=== PATIENT | female | born 1950 | race Caucasian/White ===

== ENCOUNTER 2017-05-19 16:23 | Observation (INO) ==
[2017-05-19 17:40] LABS: Bilirubin,Urine Negative (Negative); Blood,Urine Negative (Negative); Clarity,Urine Clear (Clear); Color,Urine Yellow (Yellow); Glucose,Urine (UA) Normal (Normal); Ketones,Urine Negative (Negative); Leukocyte Esterase,Urine Negative (Negative); Nitrite,Urine Negative (Negative); PH,Urine 6.5 pH Units (5.0-8.0); Protein,Urine Negative (Neg-Trace); Specific Gravity,Urine 1.009 (1.010-1.025); Urobilinogen,Urine Normal (Normal)
[2017-05-19 18:06] LABS: Basophils % 0.7 %; Eosinophils % 0.2 %; Hematocrit 39.8 % (35.3-44.9); Hemoglobin 13.5 g/dL (11.5-15.4); Lymphocytes # 1.2 K/mcL (0.6-4.6); Lymphocytes % 28.5 %; Mean Corpuscular HGB Conc 33.9 g/dL (31.6-35.5); Mean Corpuscular Hemoglobin 30.4 pg (28.0-33.3); Mean Corpuscular Volume 89.6 fL (83.0-100.0); Mean Platelet Volume 9.5 fL (9.4-12.4); Monocytes # 0.3 K/mcL (0.0-1.3); Monocytes % 6.8 %; Neutrophils # 2.6 K/mcL (1.6-8.9); Platelet Count 208 K/mcL (140-400); Red Blood Count 4.44 M/mcL (3.82-4.97); Segmented Neutrophils % 63.8 %
[2017-05-19 18:21] LABS: Alanine Aminotransferase 22 Units/L (0-55); Albumin 4.2 g/dL (3.5-5.0); Albumin/Globulin Ratio 1.2 (1.1-2.2); Alkaline Phosphatase 132 Units/L (38-126); Amylase 74 Units/L (25-125); Aspartate Amino Transferase 24 Units/L (5-34); BUN/Creatinine Ratio 11 (6-26); Bilirubin,Direct 0.1 mg/dL (0.0-0.5); Bilirubin,Indirect 0.1 mg/dL (0.0-1.2); Bilirubin,Total 0.2 mg/dL (0.2-1.2); Blood Urea Nitrogen 8 mg/dL (7-20); Calcium 9.8 mg/dL (8.6-10.8); Carbon Dioxide 26 mEq/L (19-29); Chloride 97 mEq/L (98-109); Globulin 3.4 g/dL (2.4-3.5); Glucose 96 mg/dL (70-99); Lipase 41 Units/L (8-78); Osmolality,Calculated 270 (280-300); Potassium 3.7 mEq/L (3.5-4.5); Sodium 131 mEq/L (136-145); Total Protein 7.6 g/dL (6.0-8.3); eGFR For African Americans > 60 (> 60); eGFR For Non-African Americans > 60 (> 60)
--- NOTE | 2017-05-19 19:05 | Emergency Department Note ---
Disposition Clinical Impression: UTI (urinary tract infection) Qualifiers: Urinary tract infection type: acute cystitis Hematuria presence: without hematuria Qualified Code(s): N30.00 - Acute cystitis without hematuria Abdominal pain Qualifiers: Abdominal location: unspecified location Qualified Code(s): R10.9 - Unspecified abdominal pain Disposition: Admitted As Inpatient Condition: Good Referrals: Josias Guidry Jr, MD [Primary Care Provider] - Forms: ED Satisfaction Letter, Work/School Release Time of Disposition: 19:29 General Adult HPI - General Chief complaint: ED Abdominal Pain Stated complaint: ABD PAIN Time Seen by Provider: 05/19/17 18:51 Source: patient Limitations: no limitations Nursing Notes Reviewed: Yes Vital Signs Reviewed: Yes - History of Present Illness HPI Narrative: 67-year-old who was diagnosed with UTI 2 days ago placed on Cipro. Patient's not able to take the medication she is vomiting it up. She spoke to her labor mediator who told her to come in and be admitted for IV antibiotics. I did review the cultures grew out Morganella Leno greater than 100,000 colony- forming units. It is sensitive to ceftriaxone which we will start. Pt Subjective Complaint: Nausea vomiting UTI Onset (ago): day(s) Location: abdomen Radiation: non-radiation Pain Scale: 5 Quality: burning, aching Consistency: constant Improves with: nothing Worsens with: nothing Associated symptoms: Reports: denies other symptoms Treatments Prior to Arrival: none - Related Data Home Medications Medication Instructions Recorded Confirmed Avapro 08/03/16 CloNIDine 08/03/16 Lipitor 08/03/16 Lyrica 08/03/16 Previous Rx's Medication Instructions Recorded Lidocaine Viscous Oral Soln 15 ml PO Q3H PRN #200 ml 08/03/16 Moxifloxacin HCl [Avelox] 400 mg PO DAILY #7 tablet 08/03/16 Promethazine/Dextromethorphan 5 ml PO Q4H PRN #120 ml 08/03/16 [Promethazine-Dm Syrup] Fluconazole [Diflucan] 150 mg PO Q72H #2 tablet 08/10/16 Humidifier [Cool Mist Humidifier] 1 each MC DAILY #1 each 08/10/16 Moxifloxacin HCl [Avelox] 400 mg PO DAILY #7 tablet 08/10/16 Ondansetron [Zofran ODT] 8 mg SL TID PRN #9 tab.rapdis 08/10/16 Promethazine/Codeine 5 ml PO Q4HR PRN #120 ml 08/10/16 [Phenergan/Codeine] predniSONE [Prednisone] 40 mg PO DAILY #10 tablet 08/10/16 DiphenhydraMINE [Benadryl] 25 mg PO Q6HR #30 capsule 02/16/17 HYDROcodone/Acet 5/325 mg [[place] 1 tab PO Q6H PRN #6 tab 02/16/17 5-325 mg] predniSONE [PredniSONE] 60 mg PO DAILY #15 tablet 02/16/17 Allergies Allergy/AdvReac Type Severity Reaction Status Date / Time Penicillins Allergy Rash Verified 02/16/17 17:39 Sulfa (Sulfonamide Allergy Hives Verified 02/16/17 17:39 Antibiotics) All systems ED: reviewed and negative except as stated. Constitutional: Denies: fever, chills, weakness, weight change Eyes: Denies: eye pain, eye discharge, vision change ENT ED: Denies: ear pain, throat pain, dental pain, hearing loss, epistaxis, congestion, dysphagia Cardiovascular: Denies: chest pain, palpitations, dyspnea on exertion, edema, syncope Respiratory: Denies: cough, dyspnea, wheezes, hemoptysis, stridor Gastrointestinal: Reports: abdominal pain, nausea, vomiting. Denies: diarrhea, constipation, hematemesis, melena, hematochezia Genitourinary: Denies: dysuria, frequency, hematuria, discharge Musculoskeletal: Denies: back pain, neck pain, arthralgia, myalgia Integumentary: Denies: rash, abrasion, lesions Neurological: Denies: headache, weakness, numbness, paresthesias, confusion, abnormal gait, vertigo Psychiatric: Denies: anxiety, depression, suicidal thoughts, homicidal thoughts , auditory hallucinations, visual hallucinations Endocrine: Denies: fatigue Hematological/Lymphatic: Denies: easy bleeding, easy bruising Allergic/Immunologic: Denies: facial swelling, urticaria Past Medical History - Past Medical History Medical history: Reports: hyperlipidemia, hypertension, migraine, thyroid disease, other Surgical history: Reports: (x2) Psychiatric history: Reports: anxiety, depression - Social History Smoking Status: Never smoker Smokeless Tobacco Status: No Alcohol use: Reports: rarely Drug use: Reports: none Physical Exam - General Limitations: no limitations General appearance: alert - Head Head exam: atraumatic, normocephalic, normal inspection - Eye Eye exam: Present: normal appearance, PERRL, EOMI - ENT ENT exam: normal exam, normal oropharynx, mucous membranes moist - Neck Neck exam: Present: normal inspection, full ROM, trachea midline - Chest Chest inspection: Present: normal inspection, symmetric chest wall rise - Respiratory Respiratory exam: Present: normal lung sounds bilaterally - Cardiovascular Cardiovascular exam: Present: regular rate, normal rhythm, normal heart sounds - Abdominal Exam Abdominal exam: Present: soft, tenderness. Absent: distention, guarding, rebound, rigidity Abdominal tenderness: Present: diffuse - Extremities Exam Extremities exam: Present: normal inspection, full ROM. Absent: tenderness, pedal edema - Expanded Lower Extremity Exam Neurovascular/Tendon exam: Absent: motor deficit, sensory deficit, tendon deficit Gait: observed and normal - Back Exam Back exam: Present: normal inspection, full ROM. Absent: tenderness - Neurological Exam Neurological exam: Present: alert, oriented X3 - Psychiatric Psychiatric exam: Present: normal affect, normal mood - Skin Skin exam: Present: warm, dry, intact, normal color Course - Reevaluation(s) Reevaluation #1: 67-year-old who comes in with a history of UTI diagnosed 2 days ago. It grew out Morganella Leno. It is sensitive to Cipro which she was on but she cannot tolerate been vomiting. She talked to her labor mediator who sent her in to be admitted for IV antibiotics. We'll give her Rocephin IV. Her urine today looks clear although 2 days ago the culture is positive for greater than 100,000 of Morganella Leno. Time: 19:27 Reevaluation #2: Patient refused abdominal CT. Time: 20:50 - Consultations Consultation #1: Discussed with Dr. Byrd nephrology, admit to hospitalist. Time: 19:09 Consultation #2: Discussed with , admit. Time: 19:26 Vital Signs Temperature 97.6 F 05/19/17 16:40 Pulse Rate 66 05/19/17 16:40 Respiratory Rate 22 05/19/17 16:40 Blood Pressure 131/85 05/19/17 16:40 O2 Sat by Pulse Oximetry 99 05/19/17 16:40 Temperature 97.6 F 05/19/17 16:40 Pulse Rate 66 05/19/17 16:40 Respiratory Rate 22 05/19/17 16:40 Blood Pressure 131/85 05/19/17 16:40 O2 Sat by Pulse Oximetry 99 05/19/17 16:40 Oxygen Delivery Oxygen Delivery Room Air Medical Decision Making - Lab Data Result diagrams: 05/19/17 17:55 05/19/17 17:55 Lab Results 05/19/17 05/19/17 05/19/17 Range/Units 17:28 17:55 17:55 WBC 4.1 L (4.3-11.1) K/mcL RBC 4.44 (3.82-4.97) M/mcL Hgb 13.5 (11.5-15.4) g/dL Hct 39.8 (35.3-44.9) % MCV 89.6 (83.0-100.0) fL MCH 30.4 (28.0-33.3) pg MCHC 33.9 (31.6-35.5) g/dL RDW 13.0 (11.5-14.5) % Plt Count 208 (140-400) K/mcL MPV 9.5 (9.4-12.4) fL Immature Gran % 0.0 (0-4) % Seg Neutrophils % 63.8 % Lymphocytes % 28.5 % Monocytes % 6.8 % Eosinophils % 0.2 % Basophils % 0.7 % Neutrophils # 2.6 (1.6-8.9) K/mcL Lymphocytes # 1.2 (0.6-4.6) K/mcL Monocytes # 0.3 (0.0-1.3) K/mcL Eosinophils # 0.0 (0.0-0.6) K/mcL Basophils # 0.0 (0.0-0.2) K/mcL Sodium 131 L (136-145) mEq/L Potassium 3.7 (3.5-4.5) mEq/L Chloride 97 L (98-109) mEq/L Carbon Dioxide 26 (19-29) mEq/L BUN 8 (7-20) mg/dL Creatinine 0.72 (0.57-1.11) mg/dL Est GFR ( Amer) > 60 (> 60) Est GFR (Non-Af Amer) > 60 (> 60) BUN/Creatinine Ratio 11 (6-26) Glucose 96 (70-99) mg/dL Calculated Osmolality 270 L (280-300) Calcium 9.8 (8.6-10.8) mg/dL Total Bilirubin 0.2 (0.2-1.2) mg/dL Direct Bilirubin 0.1 (0.0-0.5) mg/dL Indirect Bilirubin 0.1 (0.0-1.2) mg/dL AST 24 (5-34) Units/L ALT 22 (0-55) Units/L Alkaline Phosphatase 132 H (38-126) Units/L Serum Total Protein 7.6 (6.0-8.3) g/dL Albumin 4.2 (3.5-5.0) g/dL Globulin 3.4 (2.4-3.5) g/dL Albumin/Globulin Ratio 1.2 (1.1-2.2) Amylase 74 (25-125) Units/L Lipase 41 (8-78) Units/L Urine Color Yellow (Yellow) Urine Clarity Clear (Clear) Urine pH 6.5 (5.0-8.0) pH Units Ur Specific [place] 1.009 L (1.010-1.025) Urine Protein Negative (Neg-Trace) mg/dL Urine Glucose (UA) Normal (Normal) mg/dL Urine Ketones Negative (Negative) mg/dL Urine Blood Negative (Negative) Urine Nitrite Negative (Negative) Urine Bilirubin Negative (Negative) Urine Urobilinogen Normal (Normal) mg/dL Ur Leukocyte Esterase Negative (Negative) Ur Culture Indicated? NO (NO)
--- NOTE | 2017-05-19 19:44 | Internal Med History&Physical ---
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 Urine cultures grew out Morganella Leno greater than 100,000 colony-forming units with sensitivity to ceftriaxone. Patient reports not being able to keep the Cipro due to vomiting. Rocephin 1g IV daily Zofran/ Phenergan prn N/V Urinalysis negative in in ED Advance diet as tolerated (2) Constipation Current visit: Yes Status: Acute She also reports chronic constipation. Last BM 5 days ago. Senna Plus BID Continue to monitor Qualifiers: Constipation type: slow transit constipation Qualified Code(s): K59.01 - Slow transit constipation (3) HTN (hypertension) Current visit: Yes Status: Chronic Continue home meds Qualifiers: Hypertension type: essential hypertension Qualified Code(s): I10 - Essential (primary) hypertension (4) HLD (hyperlipidemia) Current visit: Yes Status: Chronic Continue home meds Qualifiers: Hyperlipidemia type: unspecified Qualified Code(s): E78.5 - Hyperlipidemia , unspecified (5) Peripheral neuropathy Current visit: Yes Status: Chronic BLE neuropathy Continue home meds Qualifiers: Peripheral neuropathy type: polyneuropathy, unspecified Qualified Code(s): G62.9 - Polyneuropathy, unspecified (6) Insomnia Current visit: Yes Status: Chronic Continue home meds Qualifiers: Insomnia type: unspecified Qualified Code(s): G47.00 - Insomnia, unspecified (7) DVT prophylaxis Current visit: Yes Status: Acute Heparin subq TID Internal Medicine - H&P: HPI Chief complaint: UTI Admitted From: Home Plans for Post Hospital Care: Home History of present illness: Ms. 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 Urine cultures grew out Morganella Leno greater than 100,000 colony-forming units with sensitivity to ceftriaxone. Patient reports not being able to keep the Cipro due to vomiting. She also reports associated urinary hesitancy, weakness, anorexia, insomnia, and chronic constipation. Last BM 5 days ago. Of note, patient reports chronic UTIs with an average of 4 episodes per year. Patient denies fever, chills, CP, SOB, diarrhea, dysuria, or leg edema. Past Med Surg Social Fam HX - Past Medical History Medical history: hyperlipidemia, hypertension, migraine, thyroid disease, other Psychiatric history: anxiety, depression - Past Surgical History Surgical History: (x2) - Social History Smoking Status: Never smoker Smokeless Tobacco Status: No Alcohol use: rarely Drug use: none Current living situation: Home, With Family - Family History Mother Hx Family Cardiac Disorders: Yes (CAD, CABG x4 vessel) Father Hx Family GI Disorders: Yes (UC) Internal Medicine - H&P: Meds Atorvastatin Calcium [Lipitor] 20 mg PO HS 08/03/16 [History] Irbesartan [Avapro] 150 mg PO BID 08/03/16 [History] Pregabalin [Lyrica] 75 mg PO TID 08/03/16 [History] cloNIDine HCl [Clonidine HCl] 0.2 mg PO QAM AND QHS 08/03/16 [History] Ondansetron [Zofran ODT] 8 mg SL TID PRN #9 tab.rapdis 08/10/16 [Rx] Acetaminophen w/Cod 300-30 mg [Tylenol w/Codeine #3] 1 each PO Q6H PRN 05/19/17 [History] Acetaminophen/Butalbital/Caffe [Fioricet] 1 each PO Q4-6H PRN 05/19/17 [History] Amlodipine Besylate 2.5 mg PO BID 05/19/17 [History] Aspirin 325 mg PO DAILY 05/19/17 [History] Atenolol [Tenormin] 50 mg PO DAILY 05/19/17 [History] Calcium Carbonate/Vitamin D3 [Calcium 600-Vit D3 200 Tablet] 1 each PO BID 05/19 [History] Glucosam Sul Na/[place]r [place] A Na [Glucosamine-Chondroitin Tablet] 1 each PO BID [History] Inulin [Fiber Gummies] 2 gm PO DAILY 05/19/17 [History] LORazepam [Ativan] 1 mg PO TID 05/19/17 [History] Lactulose 10 - 20 gm PO TID PRN 05/19/17 [History] Levothyroxine [Synthroid] 50 mcg PO 0630 05/19/17 [History] Lidocaine Patch [Lidoderm 5% patch] 2 each TP DAILY 05/19/17 [History] Loratadine [Claritin] 10 mg PO DAILY 05/19/17 [History] Promethazine [Phenergan] 25 mg PO Q6H PRN 05/19/17 [History] Spironolactone [Aldactone] 50 mg PO DAILY 05/19/17 [History] Temazepam [Restoril] 30 mg PO HS 05/19/17 [History] Vitamin B Complex [B Complex] 1 each PO DAILY 05/19/17 [History] 3 Allergy/AdvReac Type Severity Reaction Status Date / Time Penicillins Allergy Rash Verified 02/16/17 17:39 Sulfa (Sulfonamide Allergy Hives Verified 02/16/17 17:39 Antibiotics) All Systems PM: A 10-system review of systems was performed and is negative for pertinent findings except as documented above in the HPI. - Constitutional Constitutional: anorexia, weakness, no chills, no fever(s), no weight gain, no weight loss - EENT Eyes: no change in vision Nose, mouth and throat: no nasal congestion, no sore throat - Cardiovascular Cardiovascular ROS IM: no chest pain, no palpitations - Respiratory Respiratory: no cough, no dyspnea - Gastrointestinal Gastrointestinal: abdominal pain, bloating, constipation, nausea, vomiting, no cramping, no hematemesis, no hematochezia - Genitourinary Additional comments: hesitancy - Musculoskeletal Musculoskeletal ROS IM: numbness, tingling, no back pain - Neurological Neurological ROS: numbness, tingling, weakness, no dizziness - Psychiatric Psychiatric: no anxiety, no depression Additional comments: insomnia - Endocrine Endocrine IM: no polydipsia, no polyphagia, no polyuria - Constitutional Vitals: Temp Pulse Resp BP Pulse Ox 97.6 F 66 22 131/85 99 05/19/17 16:40 05/19/17 16:40 05/19/17 16:40 05/19/17 16:40 05/19/17 16:40 General appearance: Present: cooperative, A&O X 3, pleasant, no acute distress, answers questions appropriately - Head Head exam: Present: atraumatic, normocephalic - Eye Eye exam: Present: PERRL, conjuntiva pink, sclera anicteric Pupils: Present: PERRL - Neck Neck exam general surgery: Present: supple, trachea midline - Respiratory Respiratory exam: Present: CTAB. Absent: accessory muscle use, rales, rhonchi, wheezes - Cardiovascular Cardiovascular exam: Present: RRR, +S1, +S2. Absent: diastolic murmur, gallop, rubs, systolic murmur - GI/Abdominal GI/Abdominal exam: Present: normal bowel sounds, soft, no peritoneal signs. Absent: distended, guarding, rebound, tenderness - Extremities Exam Extremities exam: Present: warm, radial pulses palpable and symmetrical. Absent : calf tenderness, cyanotic, pedal edema - Back Exam Back exam: Present: normal inspection. Absent: CVA tenderness (L), CVA tenderness (R), paraspinal tenderness, tenderness, vertebral tenderness - Neurological Exam Neurological exam: Present: CN II-XII intact, oriented X3, no focal deficits. Absent: facial droop, speech deficit - Skin Skin exam: Present: dry, intact, normal color, warm Internal Med - H&P Results - Labs CBC & Chem 7: 05/19/17 17:55 05/19/17 17:55 Labs: Short CBC 05/19/17 Range/Units 17:55 WBC 4.1 L (4.3-11.1) K/mcL Hgb 13.5 (11.5-15.4) g/dL Hct 39.8 (35.3-44.9) % Plt Count 208 (140-400) K/mcL Neutrophils # 2.6 (1.6-8.9) K/mcL BMP 05/19/17 17:55 Sodium 131 L Potassium 3.7 Chloride 97 L Carbon Dioxide 26 BUN 8 Creatinine 0.72 Glucose 96 Calcium 9.8 Liver Function 05/19/17 Range/Units 17:55 Total Bilirubin 0.2 (0.2-1.2) mg/dL Direct Bilirubin 0.1 (0.0-0.5) mg/dL AST 24 (5-34) Units/L ALT 22 (0-55) Units/L Alkaline Phosphatase 132 H (38-126) Units/L Albumin 4.2 (3.5-5.0) g/dL Urine 05/19/17 Range/Units 17:28 Urine Color Yellow (Yellow) Urine Clarity Clear (Clear) Urine pH 6.5 (5.0-8.0) pH Units Ur Specific [place] 1.009 L (1.010-1.025) Urine Protein Negative (Neg-Trace) mg/dL Urine Glucose (UA) Normal (Normal) mg/dL
[2017-05-19] MEDS ORDERED: Ondansetron 4 MG/2 ML VIAL IVP ONE (19:53)
[2017-05-19] MEDS ORDERED: *HR* Morphine 2 MG/ML SYRINGE IVP PRN (20:53)
[2017-05-19] MEDS ORDERED: Naloxone 0.4 MG/ML INJ IVP PRN (20:53)
[2017-05-19] MEDS ORDERED: Ondansetron 4 MG/2 ML VIAL IVP PRN (20:53)
[2017-05-19] MEDS ORDERED: Lactulose 200 GM/300 ML (for enema) RC PRN (23:29)
[2017-05-19] MEDS ORDERED: Acetaminophen/Butalbital/CaffeineTABLET PO PRN (23:29)
[2017-05-19] MEDS: *HR* Heparin 5,000 UNIT/ML VIAL SQ SCH (23:43)
[2017-05-19] MEDS: Sennosides/Docusate Sodium TABLET PO SCH (23:43)
[2017-05-20] MEDS: *HR* Promethazine 25 MG/ML VIAL IVP PRN (00:04)
[2017-05-20] MEDS ORDERED: Lactulose 200 GM, Sodium Chloride IRRigation 700 ML RC PRN (01:17)
--- NOTE | 2017-05-20 01:37 | Event Note ---
Date of Encounter: 05/19/17 Time of Encounter: 20:00 I have personally seen the patient. Patient was sent by Dr. Layton for recurrent UTI and has been a started on IV Rocephin for Morganella. Otherwise asymptomatic and abdominal examination is unremarkable. Discussed with the resident.
[2017-05-20] MEDS: *HR* LORazepam 1 MG TABLET PO SCH ×4 (01:47→20:55)
[2017-05-20] MEDS: Temazepam 15 MG CAPSULE PO SCH ×3 (02:24→22:01)
[2017-05-20] MEDS: *HR* Acetaminophen w/Cod 300-30 mg 1 TAB TABLET PO PRN (03:29)
[2017-05-20] MEDS: cloNIDine HCl 0.1 MG TABLET PO SCH ×3 (03:32→20:07)
[2017-05-20] MEDS: amLODIPine 5 MG TABLET PO SCH ×3 (03:32→20:07)
[2017-05-20 03:58] LABS: Hemoglobin 14.8 g/dL (11.5-15.4); Mean Corpuscular HGB Conc 34.4 g/dL (31.6-35.5); Mean Corpuscular Hemoglobin 30.8 pg (28.0-33.3); Mean Corpuscular Volume 89.6 fL (83.0-100.0); Mean Platelet Volume 10.1 fL (9.4-12.4); Platelet Count 227 K/mcL (140-400)
[2017-05-20 04:20] LABS: BUN/Creatinine Ratio 8 (6-26); Blood Urea Nitrogen 6 mg/dL (7-20); Calcium 10.3 mg/dL (8.6-10.8); Carbon Dioxide 27 mEq/L (19-29); Chloride 98 mEq/L (98-109); Glucose 81 mg/dL (70-99); Osmolality,Calculated 275 (280-300); Sodium 134 mEq/L (136-145); eGFR For African Americans > 60 (> 60); eGFR For Non-African Americans > 60 (> 60)
[2017-05-20] MEDS: Famotidine 20 MG/2 ML VIAL IVP SCH ×2 (04:28→17:49)
[2017-05-20] MEDS: *HR* Heparin 5,000 UNIT/ML VIAL SQ SCH ×3 (06:14→22:01)
[2017-05-20] MEDS: Pregabalin 75 MG CAPSULE PO SCH ×3 (09:11→20:55)
[2017-05-20] MEDS: Sennosides/Docusate Sodium TABLET PO SCH ×2 (09:12→20:53)
[2017-05-20] MEDS: Vitamin B Complex/Vit C/Vit E 1 EACH TABLET PO SCH (09:12)
[2017-05-20] MEDS: Aspirin 325 MG TABLET PO SCH (09:12)
[2017-05-20] MEDS: [UNRECOGNIZED DRUG - OTHER] PO SCH ×2 (09:13→20:55)
[2017-05-20] MEDS: FIBER GUMMIES PO SCH (09:13)
[2017-05-20] MEDS: 0.9 % Sodium Chloride 1,000 ML IVC SCH (11:40)
[2017-05-20] MEDS ORDERED: 0.9 % Sodium Chloride 1,000 ML ONE (11:40)
--- NOTE | 2017-05-20 18:10 | Internal Med Progress Note ---
Date of Encounter: 05/20/17 Time of Encounter: 11:00 - Assessment and plan (1) Recurrent UTI (urinary tract infection) Current Visit: Yes Status: Acute Assessment and plan: -Patient was sent by Dr. Layton for recurrent UTI and has been a started on IV Rocephin for Morganella. -Will continue current medical management. (2) HTN (hypertension) Current Visit: Yes Status: Chronic Assessment and plan: -She has been hypotensive and home blood pressure medications have been held; fluid bolus was given. -Will continue IV fluids and monitoring blood pressures. Qualifiers: Hypertension type: essential hypertension Qualified Code(s): I10 - Essential (primary) hypertension (3) HLD (hyperlipidemia) Current Visit: Yes Status: Chronic Assessment and plan: -Continue statin. Qualifiers: Hyperlipidemia type: unspecified Qualified Code(s): E78.5 - Hyperlipidemia , unspecified (4) DVT prophylaxis Current Visit: Yes Status: Acute Assessment and plan: -On heparin subcutaneous - Subjective Interval history: Patient has been hypotensive this morning and afternoon. - Constitutional Vitals: Temp Pulse Resp BP Pulse Ox 97.4 F L 53 16 99/59 99 05/20/17 15:28 05/20/17 15:28 05/20/17 14:16 05/20/17 15:28 05/20/17 14:16 General appearance: Present: cooperative, A&O X 3, pleasant, no acute distress, answers questions appropriately - Cardiovascular Cardiovascular exam: Present: RRR, +S1, +S2. Absent: diastolic murmur, gallop, rubs, systolic murmur Internal Medicine: Result - Labs CBC & Chem 7: 05/20/17 03:26 05/20/17 03:26 Labs: Short CBC 05/20/17 Range/Units 03:26 WBC 4.1 L (4.3-11.1) K/mcL Hgb 14.8 (11.5-15.4) g/dL Hct 43.0 (35.3-44.9) % Plt Count 227 (140-400) K/mcL BMP 05/20/17 03:26 Sodium 134 L Potassium 4.0 Chloride 98 Carbon Dioxide 27 BUN 6 L Creatinine 0.73 Glucose 81 Calcium 10.3 Consult Discharge Plan - Plan Referrals: Josias Guidry Jr, MD [Primary Care Provider] -
[2017-05-21] MEDS: 0.9 % Sodium Chloride 1,000 ML IVC SCH (03:00)
[2017-05-21] MEDS: *HR* Heparin 5,000 UNIT/ML VIAL SQ SCH ×3 (05:57→20:56)
[2017-05-21] MEDS: Famotidine 20 MG/2 ML VIAL IVP SCH ×2 (05:57→18:48)
[2017-05-21] MEDS: *HR* Promethazine 25 MG/ML VIAL IVP PRN (06:02)
[2017-05-21] MEDS: *HR* Acetaminophen w/Cod 300-30 mg 1 TAB TABLET PO PRN (06:02)
[2017-05-21] MEDS: Vitamin B Complex/Vit C/Vit E 1 EACH TABLET PO SCH (08:42)
[2017-05-21] MEDS: Pregabalin 75 MG CAPSULE PO SCH ×3 (08:42→20:58)
[2017-05-21] MEDS: cloNIDine HCl 0.1 MG TABLET PO SCH ×2 (08:42→20:57)
[2017-05-21] MEDS: Aspirin 325 MG TABLET PO SCH (08:43)
[2017-05-21] MEDS: amLODIPine 5 MG TABLET PO SCH ×2 (08:44→20:57)
[2017-05-21] MEDS: Sennosides/Docusate Sodium TABLET PO SCH ×2 (08:44→20:57)
[2017-05-21] MEDS: *HR* LORazepam 1 MG TABLET PO SCH ×3 (08:44→20:58)
[2017-05-21 08:52] LABS: Basophils % 1.3 %; Eosinophils % 0.3 %; Hematocrit 43.1 % (35.3-44.9); Hemoglobin 14.7 g/dL (11.5-15.4); Immature Granulocytes % 0.3 % (0-4); Lymphocytes # 1.7 K/mcL (0.6-4.6); Lymphocytes % 52.9 %; Mean Corpuscular HGB Conc 34.1 g/dL (31.6-35.5); Mean Corpuscular Hemoglobin 30.8 pg (28.0-33.3); Mean Corpuscular Volume 90.4 fL (83.0-100.0); Mean Platelet Volume 10.1 fL (9.4-12.4); Monocytes # 0.2 K/mcL (0.0-1.3); Monocytes % 6.4 %; Neutrophils # 1.2 K/mcL (1.6-8.9); Platelet Count 202 K/mcL (140-400); Red Blood Count 4.77 M/mcL (3.82-4.97); Red Cell Distribution Width 13.3 % (11.5-14.5); Segmented Neutrophils % 38.8 %
[2017-05-21] MEDS: FIBER GUMMIES PO SCH (09:00)
[2017-05-21] MEDS: [UNRECOGNIZED DRUG - OTHER] PO SCH ×2 (09:01→20:58)
[2017-05-21 09:06] LABS: BUN/Creatinine Ratio 7 (6-26); Calcium 9.9 mg/dL (8.6-10.8); Carbon Dioxide 22 mEq/L (19-29); Chloride 105 mEq/L (98-109); Glucose 75 mg/dL (70-99); Osmolality,Calculated 284 (280-300); Potassium 3.9 mEq/L (3.5-4.5); Sodium 139 mEq/L (136-145); eGFR For African Americans > 60 (> 60); eGFR For Non-African Americans > 60 (> 60)
[2017-05-21 09:07] LABS: Blood Urea Nitrogen 5 mg/dL (7-20)
--- NOTE | 2017-05-21 16:56 | Internal Med Progress Note ---
Date of Encounter: 05/21/17 Time of Encounter: 11:00 - Assessment and plan (1) Recurrent UTI (urinary tract infection) Current Visit: Yes Status: Acute Assessment and plan: -Patient was sent by Dr. Layton for recurrent UTI and berenice IV Rocephin for Morganella. -Cultures grew Morganella which is pansensitive and will discharge with an oral floruoquinolone since patient is able to tolerate this medicine per her report. -Will continue current medical management of IV Rocephin for one more day. (2) HTN (hypertension) Current Visit: Yes Status: Chronic Assessment and plan: -Continue home blood pressure medications. Qualifiers: Hypertension type: essential hypertension Qualified Code(s): I10 - Essential (primary) hypertension (3) HLD (hyperlipidemia) Current Visit: Yes Status: Chronic Assessment and plan: -Continue statin. Qualifiers: Hyperlipidemia type: unspecified Qualified Code(s): E78.5 - Hyperlipidemia , unspecified (4) Hypothyroid Current Visit: Yes Status: Acute Assessment and plan: -Continue levothyroxine Qualifiers: Hypothyroidism type: unspecified Qualified Code(s): E03.9 - Hypothyroidism , unspecified (5) Mood disorder Current Visit: Yes Status: Acute Assessment and plan: -Continue home medications. - Subjective Interval history: No acute issues overnight - Constitutional Vitals: Temp Pulse Resp BP Pulse Ox 97.8 F 58 18 122/66 99 05/21/17 14:45 05/21/17 14:45 05/21/17 14:45 05/21/17 14:45 05/21/17 14:45 General appearance: Present: cooperative, A&O X 3, pleasant, no acute distress, answers questions appropriately - Respiratory Respiratory exam: Present: CTAB. Absent: accessory muscle use, rales, rhonchi, wheezes - Cardiovascular Cardiovascular exam: Present: RRR, +S1, +S2. Absent: diastolic murmur, gallop, rubs, systolic murmur Internal Medicine: Result - Labs CBC & Chem 7: 05/21/17 08:36 05/21/17 08:36 Labs: Short CBC 05/21/17 Range/Units 08:36 WBC 3.1 L (4.3-11.1) K/mcL Hgb 14.7 (11.5-15.4) g/dL Hct 43.1 (35.3-44.9) % Plt Count 202 (140-400) K/mcL Neutrophils # 1.2 L (1.6-8.9) K/mcL BMP 05/21/17 08:36 Sodium 139 Potassium 3.9 Chloride 105 Carbon Dioxide 22 BUN 5 L Creatinine 0.72 Glucose 75 Calcium 9.9 Consult Discharge Plan - Plan Referrals: Josias Guidry Jr, MD [Primary Care Provider] - Prescriptions: cefTRIAXone [Rocephin] 2,000 mg IJ DAILY #7 vial
[2017-05-21] MEDS: Temazepam 15 MG CAPSULE PO SCH (20:57)
[2017-05-22] MEDS: *HR* Acetaminophen w/Cod 300-30 mg 1 TAB TABLET PO PRN (04:11)
[2017-05-22] MEDS: *HR* Promethazine 25 MG/ML VIAL IVP PRN (04:11)
[2017-05-22] MEDS: *HR* Heparin 5,000 UNIT/ML VIAL SQ SCH ×2 (05:40→12:28)
[2017-05-22] MEDS: Famotidine 20 MG/2 ML VIAL IVP SCH (05:40)
[2017-05-22] MEDS: Aspirin 325 MG TABLET PO SCH (08:37)
[2017-05-22] MEDS: Sennosides/Docusate Sodium TABLET PO SCH (08:37)
[2017-05-22] MEDS: Pregabalin 75 MG CAPSULE PO SCH ×2 (08:37→15:05)
[2017-05-22] MEDS: amLODIPine 5 MG TABLET PO SCH (08:38)
[2017-05-22] MEDS: cloNIDine HCl 0.1 MG TABLET PO SCH (08:38)
[2017-05-22] MEDS: *HR* LORazepam 1 MG TABLET PO SCH ×2 (08:38→15:05)
[2017-05-22] MEDS: Vitamin B Complex/Vit C/Vit E 1 EACH TABLET PO SCH (08:39)
[2017-05-22] MEDS: [UNRECOGNIZED DRUG - OTHER] PO SCH (08:39)
[2017-05-22] MEDS: FIBER GUMMIES PO SCH (08:39)
[2017-05-22 11:32] VITALS: BP 118/68
--- NOTE | 2017-05-22 15:19 | Discharge Summary ---
Date of Encounter: 05/22/17 Time of Encounter: 10:00 - Discharge Diagnosis (1) Recurrent UTI (urinary tract infection) Priority: Primary Status: Acute (2) HTN (hypertension) Priority: Secondary Status: Chronic Qualifiers: Hypertension type: essential hypertension Qualified Code(s): I10 - Essential (primary) hypertension (3) HLD (hyperlipidemia) Priority: Secondary Status: Chronic Qualifiers: Hyperlipidemia type: unspecified Qualified Code(s): E78.5 - Hyperlipidemia , unspecified (4) Hypothyroid Priority: Secondary Status: Acute Qualifiers: Hypothyroidism type: unspecified Qualified Code(s): E03.9 - Hypothyroidism , unspecified (5) Mood disorder Priority: Secondary Status: Acute - Discharge Medications Prescriptions: Moxifloxacin HCl [Avelox] 400 mg PO DAILY #6 tablet Home Medications: Atorvastatin Calcium [Lipitor] 20 mg PO HS 08/03/16 [History] Irbesartan [Avapro] 150 mg PO BID 08/03/16 [History] Pregabalin [Lyrica] 75 mg PO TID 08/03/16 [History] cloNIDine HCl [Clonidine HCl] 0.2 mg PO QAM AND QHS 08/03/16 [History] Ondansetron [Zofran ODT] 8 mg SL TID PRN #9 tab.rapdis 08/10/16 [Rx] Acetaminophen w/Cod 300-30 mg [Tylenol w/Codeine #3] 1 each PO Q6H PRN 05/19/17 [History] Acetaminophen/Butalbital/Caffe [Fioricet] 1 each PO Q4-6H PRN 05/19/17 [History] Amlodipine Besylate 2.5 mg PO BID 05/19/17 [History] Aspirin 325 mg PO DAILY 05/19/17 [History] Atenolol [Tenormin] 50 mg PO DAILY 05/19/17 [History] Calcium Carbonate/Vitamin D3 [Calcium 600-Vit D3 200 Tablet] 1 each PO BID 05/19 [History] Glucosam Sul Na/Chondr Hunter A Na [Glucosamine-Chondroitin Tablet] 1 each PO BID [History] Inulin [Fiber Gummies] 2 gm PO DAILY 05/19/17 [History] LORazepam [Ativan] 1 mg PO TID 05/19/17 [History] Lactulose 10 - 20 gm PO TID PRN 05/19/17 [History] Levothyroxine [Synthroid] 50 mcg PO 0630 05/19/17 [History] Lidocaine Patch [Lidoderm 5% patch] 2 each TP DAILY 05/19/17 [History] Loratadine [Claritin] 10 mg PO DAILY 05/19/17 [History] Promethazine [Phenergan] 25 mg PO Q6H PRN 05/19/17 [History] Spironolactone [Aldactone] 50 mg PO DAILY 05/19/17 [History] Temazepam [Restoril] 30 mg PO HS 05/19/17 [History] Vitamin B Complex [B Complex] 1 each PO DAILY 05/19/17 [History] Moxifloxacin HCl [Avelox] 400 mg PO DAILY #6 tablet 05/22/17 [Rx] Allergies/Adverse Reactions: 3 Allergy/AdvReac Type Severity Reaction Status Date / Time Penicillins Allergy Rash Verified 02/16/17 17:39 Sulfa (Sulfonamide Allergy Hives Verified 02/16/17 17:39 Antibiotics) Date of admission: 05/19/17 21:01 Primary care physician: Josias Guidry Jr, MD Consults: 05/21/17 15:03 Consult to Professor Of Special Education [CONS] Routine Reason for SW Consult: discharge planning. patient states she can't take PO antibiotics and was wondering about clinic infusions for her antibiotics. - Patient Status Disposition: Home, Self-Care Condition: Good - Discharge Instructions Follow Up With: Josias Guidry Jr, MD [Primary Care Provider] - Hospital course: Patient is a 67 year old female with past medical history significant for HTN, HLD, thyroid disease and migraines that was sent to the ER by her sash installer. Patient was being treated by her sash installer for acute cystitis and was started on ciprofloxacin however patient could not tolerate medication due to side effects and nephrology recommended patient come to the ER for admission to treat with IV antibiotics. Urine cultures grew out Morganella Leno greater than 100,000 colony-forming units with sensitivity to ceftriaxone. During patients hospital stay was treated with IV ceftriaxone for a total of 4 days. She will be discharged to 10 units a 6 day course of Avelox. - Time Spent with Patient Total time spent providing and/or coordinating discharge services: Less than 30 minutes - Constitutional Vitals: Temp Pulse Resp BP Pulse Ox 97.7 F 51 16 118/68 99 05/22/17 11:31 05/22/17 11:31 05/22/17 11:31 05/22/17 11:31 05/22/17 11:31 General appearance: Present: cooperative, A&O X 3, pleasant, no acute distress, answers questions appropriately - Cardiovascular Cardiovascular exam: Present: RRR, +S1, +S2. Absent: diastolic murmur, gallop, rubs, systolic murmur
== END 2017-05-22 17:36 | disposition home or self-care (01) ==
LOC: 3BNU 16:23 → EMEROO 16:23 → SUATTDRO 21:01 → 3BNU 21:58
PROVIDERS: ADMIT Hospitalist; ATTEND Hospitalist

== ENCOUNTER 2021-04-28 20:43 | Inpatient (IN) ==
[2021-04-28 21:39] LABS: Basophils % 0.3 %; Hematocrit 34.4 % (35.3-44.9); Hemoglobin 11.5 g/dL (11.5-15.4); Immature Granulocytes % 0.1 % (0-4); Lymphocytes # 0.8 K/mcL (0.6-4.6); Lymphocytes % 8.1 %; Mean Corpuscular HGB Conc 33.4 g/dL (31.6-35.5); Mean Corpuscular Hemoglobin 28.5 pg (28.0-33.3); Mean Corpuscular Volume 85.4 fL (83.0-100.0); Mean Platelet Volume 9.7 fL (9.4-12.4); Monocytes # 0.7 K/mcL (0.0-1.3); Monocytes % 7.2 %; Neutrophils # 8.1 K/mcL (1.6-8.9); Platelet Count 254 K/mcL (140-400); Red Blood Count 4.03 M/mcL (3.82-4.97); Red Cell Distribution Width 12.8 % (11.5-14.5); Segmented Neutrophils % 84.3 %; White Blood Count 9.6 K/mcL (4.3-11.1)
[2021-04-28 21:49] LABS: Amphetamine Screen,Urine Negative ng/mL (Cutoff=1000); Barbiturate Screen,Urine Positive ng/mL (Cutoff=200); Benzodiazepines Screen,Urine Negative ng/mL (Cutoff=200); Cannabinoid Screen,Urine Negative ng/mL (Cutoff = 50); Cocaine Screen,Urine Negative ng/mL (Cutoff= 300); Opiate Screen,Urine Negative ng/mL (Cutoff=300); Phencyclidine Screen,Urine Negative ng/mL (Cutoff=25)
[2021-04-28 22:02] LABS: Bilirubin,Urine Negative (Negative); Blood,Urine Negative (Negative); Clarity,Urine Clear (Clear); Color,Urine Light-Yellow (Yellow); Glucose,Urine (UA) Normal (Normal); Hyaline Casts,Urine Few per lpf (None Seen); Ketones,Urine Negative (Negative); Leukocyte Esterase,Urine Negative (Negative); Mucus,Urine Few per lpf (None-Few); Nitrite,Urine Negative (Negative); Protein,Urine 30 mg/dL (Neg-Trace); RBC,Urine 0-3 per hpf (0-3); Urobilinogen,Urine Normal (Normal)
[2021-04-28] MEDS ORDERED: Haloperidol Lactate 5 MG/ML VIAL IVP ONE (22:15)
[2021-04-28] MEDS: *HR* LORazepam 2 MG/ML VIAL IVP ONE (22:21)
[2021-04-28 22:34] LABS: Alanine Aminotransferase 16 Units/L (7-52); Albumin 4.1 g/dL (3.5-5.7); Albumin/Globulin Ratio 1.5 (1.1-2.2); Alkaline Phosphatase 115 Units/L (34-104); Aspartate Amino Transferase 20 Units/L (13-39); BUN/Creatinine Ratio 17 (6-26); Bilirubin,Direct 0.1 mg/dL (0.0-0.2); Bilirubin,Indirect 0.4 mg/dL (0.0-1.0); Bilirubin,Total 0.5 mg/dL (0.3-1.0); Blood Urea Nitrogen 10 mg/dL (8-23); Calcium 9.1 mg/dL (8.6-10.3); Carbon Dioxide 18 mEq/L (23-29); Chloride 105 mEq/L (98-107); Ethanol < 10 mg/dL (Less than 10); Globulin 2.7 g/dL (2.4-3.5); Glucose 113 mg/dL (70-105); Osmolality,Calculated 278 (280-300); Potassium 3.8 mEq/L (3.5-5.1); Sodium 134 mEq/L (136-145); Total Protein 6.8 g/dL (6.4-8.9); eGFR For African Americans > 60 (> 60); eGFR For Non-African Americans > 60 (> 60)
[2021-04-28 22:37] LABS: Troponin I 0.29 ng/mL (< 0.04)
[2021-04-28 23:22] LABS: INR 1.2; Prothrombin Time 13.2 Seconds (9.4-12.1)
[2021-04-28 23:25] LABS: Activated Partial Thrombo Time 29.3 Seconds (26.0-36.0)
[2021-04-28] MEDS ORDERED: *HR* Heparin 5,000 UNIT/ML VIAL IVP PRN ×2 (23:49)
[2021-04-28] MEDS ORDERED: *HR* Heparin 5,000 UNIT/ML VIAL IVP ONE (23:49)
[2021-04-29] MEDS ORDERED: Naloxone 0.4 MG/ML INJ IVP PRN (00:09)
[2021-04-29] MEDS: Heparin 25,000UNIT/250ML 1/2NS 25,000 UNIT/250 ML IV.SOLN IVC SCH (00:16)
[2021-04-29] MEDS ORDERED: Melatonin 3 MG TABLET PO PRN (00:30)
[2021-04-29 01:09] LABS: Heparin anti-factor XA UFH < 0.04 IU/mL (0.30-0.70)
[2021-04-29] MEDS: Ringers Solution, Lactated 1,000 ML IVC SCH ×2 (01:28→13:50)
[2021-04-29 02:29] LABS: Basophils % 0.2 %; Hematocrit 36.6 % (35.3-44.9); Hemoglobin 11.9 g/dL (11.5-15.4); Immature Granulocytes % 0.2 % (0-4); Lymphocytes # 0.9 K/mcL (0.6-4.6); Lymphocytes % 9.8 %; Mean Corpuscular HGB Conc 32.5 g/dL (31.6-35.5); Mean Corpuscular Hemoglobin 28.1 pg (28.0-33.3); Mean Corpuscular Volume 86.3 fL (83.0-100.0); Mean Platelet Volume 9.9 fL (9.4-12.4); Monocytes # 0.5 K/mcL (0.0-1.3); Neutrophils # 7.4 K/mcL (1.6-8.9); Platelet Count 267 K/mcL (140-400); Red Blood Count 4.24 M/mcL (3.82-4.97); Red Cell Distribution Width 13.1 % (11.5-14.5); Segmented Neutrophils % 83.8 %; White Blood Count 8.8 K/mcL (4.3-11.1)
[2021-04-29 02:38] LABS: Alanine Aminotransferase 17 Units/L (7-52); Albumin 4.4 g/dL (3.5-5.7); Albumin/Globulin Ratio 1.6 (1.1-2.2); Alkaline Phosphatase 117 Units/L (34-104); Aspartate Amino Transferase 29 Units/L (13-39); BUN/Creatinine Ratio 15 (6-26); Bilirubin,Total 0.5 mg/dL (0.3-1.0); Blood Urea Nitrogen 9 mg/dL (8-23); Calcium 9.5 mg/dL (8.6-10.3); Carbon Dioxide 22 mEq/L (23-29); Chloride 103 mEq/L (98-107); Globulin 2.8 g/dL (2.4-3.5); Glucose 98 mg/dL (70-105); Magnesium 2.1 mg/dL (1.6-2.6); Osmolality,Calculated 277 (280-300); Potassium 4.1 mEq/L (3.5-5.1); Sodium 134 mEq/L (136-145); Total Protein 7.2 g/dL (6.4-8.9); eGFR For African Americans > 60 (> 60); eGFR For Non-African Americans > 60 (> 60)
[2021-04-29 02:39] LABS: C-Reactive Protein < 5 mg/L (Less than 10)
[2021-04-29] MEDS ORDERED: Perflutren Lipid Microsphere 1.3 ML in 0.9 % Sodium Chloride 8.7 ML IVP PRN (02:42)
[2021-04-29 03:27] LABS: Adenovirus Not Detected (Not Detect); Bordetella Pertussis Not Detected (Not Detect); Chlamydophila pneumoniae Not Detected (Not Detect); Coronavirus 229E Not Detected (Not Detect); Coronavirus HKU1 Not Detected (Not Detect); Coronavirus NL63 Not Detected (Not Detect); Coronavirus OC43 Not Detected (Not Detect); Human Metapneumovirus Not Detected (Not Detect); Human Rhinovirus/Enterovirus Not Detected (Not Detect); Influenza A Subtype 2009 H1 Not Detected (Not Detect); Influenza B Not Detected (Not Detect); Mycoplasma pneumoniae Not Detected (Not Detect); Parainfluenza Virus 1 Not Detected (Not Detect); Parainfluenza Virus 2 Not Detected (Not Detect); Parainfluenza Virus 3 Not Detected (Not Detect); Parainfluenza Virus 4 Not Detected (Not Detect); Respiratory Syncytial Virus Not Detected (Not Detect); SARS-CoV-2 Not Detected (Not Detect)
[2021-04-29] MEDS ORDERED: *HR* LORazepam 2 MG/ML VIAL ONE (04:11)
[2021-04-29] MEDS ORDERED: *HR* LORazepam 2 MG/ML VIAL IVP ONE ×2 (04:12→10:48)
[2021-04-29] MEDS: *HR* LORazepam 2 MG/ML VIAL IVP ONE (04:24)
[2021-04-29] MEDS: Ondansetron 4 MG/2 ML VIAL IVP PRN (04:41)
[2021-04-29] MEDS ORDERED: Aspirin 81 MG TAB.CHEW PO SCH (09:00)
[2021-04-29 15:23] LABS: Amphetamine Screen,Urine Negative ng/mL (Cutoff=1000); Barbiturate Screen,Urine Positive ng/mL (Cutoff=200); Benzodiazepines Screen,Urine Negative ng/mL (Cutoff=200); Cannabinoid Screen,Urine Positive ng/mL (Cutoff = 50); Cocaine Screen,Urine Negative ng/mL (Cutoff= 300); Opiate Screen,Urine Negative ng/mL (Cutoff=300); Phencyclidine Screen,Urine Negative ng/mL (Cutoff=25)
[2021-04-29] MEDS: *HR* LORazepam 1 MG TABLET PO SCH (20:05)
[2021-04-29] MEDS: Temazepam 15 MG CAPSULE PO SCH (20:05)
[2021-04-30] MEDS ORDERED: *HR* Enoxaparin 40 MG/0.4 ML SYRINGE SQ SCH (06:00)
[2021-04-30 07:43] LABS: Hematocrit 38.9 % (35.3-44.9); Hemoglobin 12.6 g/dL (11.5-15.4); Mean Corpuscular HGB Conc 32.4 g/dL (31.6-35.5); Mean Corpuscular Hemoglobin 28.5 pg (28.0-33.3); Mean Platelet Volume 10.1 fL (9.4-12.4); Platelet Count 281 K/mcL (140-400); Red Blood Count 4.42 M/mcL (3.82-4.97); Red Cell Distribution Width 12.9 % (11.5-14.5); White Blood Count 6.7 K/mcL (4.3-11.1)
[2021-04-30] MEDS: Heparin 25,000UNIT/250ML 1/2NS 25,000 UNIT/250 ML IV.SOLN IVC SCH (08:32)
[2021-04-30 08:33] LABS: Alanine Aminotransferase 19 Units/L (7-52); Albumin 4.5 g/dL (3.5-5.7); Albumin/Globulin Ratio 1.7 (1.1-2.2); Alkaline Phosphatase 111 Units/L (34-104); Aspartate Amino Transferase 40 Units/L (13-39); BUN/Creatinine Ratio 8 (6-26); Bilirubin,Total 0.4 mg/dL (0.3-1.0); Blood Urea Nitrogen 5 mg/dL (8-23); Calcium 9.9 mg/dL (8.6-10.3); Carbon Dioxide 21 mEq/L (23-29); Chloride 100 mEq/L (98-107); Globulin 2.7 g/dL (2.4-3.5); Glucose 147 mg/dL (70-105); Osmolality,Calculated 276 (280-300); Potassium 3.5 mEq/L (3.5-5.1); Sodium 133 mEq/L (136-145); Total Protein 7.2 g/dL (6.4-8.9); eGFR For African Americans > 60 (> 60); eGFR For Non-African Americans > 60 (> 60)
[2021-04-30] MEDS: Aspirin 325 MG TABLET PO SCH (08:47)
[2021-04-30] MEDS: Acyclovir 200 MG CAPSULE PO SCH (08:48)
[2021-04-30] MEDS: *HR* LORazepam 1 MG TABLET PO SCH ×2 (08:48→20:57)
[2021-04-30 08:59] LABS: ABG Base Excess 3 mEq/L (-2 to 3); ABG HCO3 27 mEq/L (21-27); ABG Oxygen Saturation 99 % (95-98); ABG PCO2 41 mmHg (35-45); ABG PH 7.43 pH Units (7.32-7.45); ABG PO2 148 mmHg (85-104); ABG TCO2 28 mEq/L (20-26)
[2021-04-30] MEDS ORDERED: amLODIPine 5 MG TABLET PO SCH (09:00)
[2021-04-30] MEDS ORDERED: *HR* LORazepam 2 MG/ML VIAL IVP ONE ×2 (10:33→14:24)
[2021-04-30] MEDS ORDERED: amLODIPine 5 MG TABLET PO ONE ×2 (12:45→14:15)
[2021-04-30] MEDS: 0.9 % Sodium Chloride 1,000 ML IVC SCH (13:36)
[2021-04-30 14:27] LABS: Thyroid Stimulating Hormone 2.305 mcIU/mL (0.340-5.600)
[2021-04-30] MEDS: Temazepam 15 MG CAPSULE PO SCH (20:56)
[2021-05-01] MEDS: Acetaminophen 325 MG TABLET PO PRN (01:41)
[2021-05-01] MEDS: 0.9 % Sodium Chloride 1,000 ML IVC SCH ×3 (01:42→13:16)
[2021-05-01 04:50] LABS: Hematocrit 36.1 % (35.3-44.9); Mean Corpuscular HGB Conc 33.2 g/dL (31.6-35.5); Mean Corpuscular Hemoglobin 31.1 pg (28.0-33.3); Mean Corpuscular Volume 93.5 fL (83.0-100.0); Platelet Count 336 K/mcL (140-400); Red Blood Count 3.86 M/mcL (3.82-4.97); Red Cell Distribution Width 11.3 % (11.5-14.5); White Blood Count 6.2 K/mcL (4.3-11.1)
[2021-05-01 05:03] LABS: Alanine Aminotransferase 19 Units/L (7-52); Albumin 4.4 g/dL (3.5-5.7); Albumin/Globulin Ratio 1.8 (1.1-2.2); Alkaline Phosphatase 67 Units/L (34-104); Aspartate Amino Transferase 18 Units/L (13-39); BUN/Creatinine Ratio 21 (6-26); Bilirubin,Total 0.6 mg/dL (0.3-1.0); Blood Urea Nitrogen 16 mg/dL (8-23); Calcium 10.2 mg/dL (8.6-10.3); Carbon Dioxide 29 mEq/L (23-29); Chloride 99 mEq/L (98-107); Globulin 2.5 g/dL (2.4-3.5); Glucose 117 mg/dL (70-105); Osmolality,Calculated 280 (280-300); Potassium 4.1 mEq/L (3.5-5.1); Sodium 134 mEq/L (136-145); Total Protein 6.9 g/dL (6.4-8.9); eGFR For African Americans > 60 (> 60); eGFR For Non-African Americans > 60 (> 60)
[2021-05-01] MEDS: Heparin 25,000UNIT/250ML 1/2NS 25,000 UNIT/250 ML IV.SOLN IVC SCH (08:24)
[2021-05-01] MEDS: *HR* LORazepam 1 MG TABLET PO SCH ×2 (08:31→20:02)
[2021-05-01] MEDS: Acyclovir 200 MG CAPSULE PO SCH (08:32)
[2021-05-01] MEDS: Aspirin 325 MG TABLET PO SCH (08:32)
[2021-05-01] MEDS: amLODIPine 5 MG TABLET PO SCH (08:33)
[2021-05-01] MEDS: Ondansetron 4 MG/2 ML VIAL IVP PRN (17:35)
[2021-05-01] MEDS: Acetaminophen/Butalbital/CaffeineTABLET PO PRN (17:35)
[2021-05-01] MEDS: Temazepam 15 MG CAPSULE PO SCH (20:02)
[2021-05-02] MEDS: 0.9 % Sodium Chloride 1,000 ML IVC SCH ×3 (00:26→23:02)
[2021-05-02 01:17] LABS: Basophils % 0.5 %; Eosinophils % 0.7 %; Hematocrit 36.9 % (35.3-44.9); Hemoglobin 11.6 g/dL (11.5-15.4); Immature Granulocytes % 0.2 % (0-4); Lymphocytes # 1.2 K/mcL (0.6-4.6); Mean Corpuscular HGB Conc 31.4 g/dL (31.6-35.5); Mean Corpuscular Hemoglobin 28.4 pg (28.0-33.3); Mean Corpuscular Volume 90.4 fL (83.0-100.0); Mean Platelet Volume 10.3 fL (9.4-12.4); Monocytes # 0.6 K/mcL (0.0-1.3); Monocytes % 9.4 %; Platelet Count 228 K/mcL (140-400); Red Blood Count 4.08 M/mcL (3.82-4.97); Red Cell Distribution Width 12.9 % (11.5-14.5); Segmented Neutrophils % 68.2 %; White Blood Count 5.9 K/mcL (4.3-11.1)
[2021-05-02 01:43] LABS: Alanine Aminotransferase 20 Units/L (7-52); Albumin/Globulin Ratio 1.5 (1.1-2.2); Alkaline Phosphatase 122 Units/L (34-104); Aspartate Amino Transferase 29 Units/L (13-39); BUN/Creatinine Ratio 15 (6-26); Bilirubin,Total 0.2 mg/dL (0.3-1.0); Blood Urea Nitrogen 9 mg/dL (8-23); Calcium 9.3 mg/dL (8.6-10.3); Carbon Dioxide 24 mEq/L (23-29); Chloride 103 mEq/L (98-107); Globulin 2.7 g/dL (2.4-3.5); Glucose 102 mg/dL (70-105); Osmolality,Calculated 281 (280-300); Potassium 3.6 mEq/L (3.5-5.1); Sodium 136 mEq/L (136-145); Total Protein 6.7 g/dL (6.4-8.9); eGFR For African Americans > 60 (> 60); eGFR For Non-African Americans > 60 (> 60)
[2021-05-02] MEDS: *HR* Enoxaparin 40 MG/0.4 ML SYRINGE SQ SCH (05:08)
[2021-05-02] MEDS: Ondansetron 4 MG/2 ML VIAL IVP PRN ×2 (07:53→18:58)
[2021-05-02] MEDS: Acetaminophen/Butalbital/CaffeineTABLET PO PRN ×2 (07:54→18:58)
[2021-05-02] MEDS: Aspirin 325 MG TABLET PO SCH (08:47)
[2021-05-02] MEDS: Acyclovir 200 MG CAPSULE PO SCH (08:47)
[2021-05-02] MEDS: *HR* LORazepam 1 MG TABLET PO SCH ×3 (08:47→20:10)
[2021-05-02] MEDS: amLODIPine 5 MG TABLET PO SCH (08:48)
[2021-05-02] MEDS: Temazepam 15 MG CAPSULE PO SCH (20:09)
[2021-05-03 02:14] LABS: Hemoglobin 12.4 g/dL (11.5-15.4); Mean Corpuscular HGB Conc 32.6 g/dL (31.6-35.5); Mean Corpuscular Volume 88.8 fL (83.0-100.0); Mean Platelet Volume 10.2 fL (9.4-12.4); Platelet Count 270 K/mcL (140-400); Red Blood Count 4.28 M/mcL (3.82-4.97); Red Cell Distribution Width 13.1 % (11.5-14.5); White Blood Count 5.2 K/mcL (4.3-11.1)
[2021-05-03 02:17] LABS: Alanine Aminotransferase 22 Units/L (7-52); Albumin 4.5 g/dL (3.5-5.7); Albumin/Globulin Ratio 1.4 (1.1-2.2); Alkaline Phosphatase 119 Units/L (34-104); Aspartate Amino Transferase 29 Units/L (13-39); BUN/Creatinine Ratio 12 (6-26); Bilirubin,Total 0.3 mg/dL (0.3-1.0); Blood Urea Nitrogen 7 mg/dL (8-23); Calcium 9.9 mg/dL (8.6-10.3); Carbon Dioxide 25 mEq/L (23-29); Chloride 103 mEq/L (98-107); Globulin 3.2 g/dL (2.4-3.5); Glucose 109 mg/dL (70-105); Osmolality,Calculated 283 (280-300); Potassium 3.5 mEq/L (3.5-5.1); Sodium 137 mEq/L (136-145); Total Protein 7.7 g/dL (6.4-8.9); eGFR For African Americans > 60 (> 60); eGFR For Non-African Americans > 60 (> 60)
[2021-05-03] MEDS: *HR* Enoxaparin 40 MG/0.4 ML SYRINGE SQ SCH (05:25)
[2021-05-03] MEDS: Aspirin 325 MG TABLET PO SCH (08:26)
[2021-05-03] MEDS: *HR* LORazepam 1 MG TABLET PO SCH ×3 (08:26→19:44)
[2021-05-03] MEDS: Acyclovir 200 MG CAPSULE PO SCH (08:26)
[2021-05-03] MEDS: amLODIPine 5 MG TABLET PO SCH (08:27)
[2021-05-03] MEDS: 0.9 % Sodium Chloride 1,000 ML IVC SCH ×2 (10:01→19:44)
[2021-05-03] MEDS: Acetaminophen/Butalbital/CaffeineTABLET PO PRN (12:26)
[2021-05-03] MEDS: Ondansetron 4 MG/2 ML VIAL IVP PRN ×2 (12:26→23:36)
[2021-05-03] MEDS: Acetaminophen 325 MG TABLET PO PRN (19:42)
[2021-05-03] MEDS: Temazepam 15 MG CAPSULE PO SCH (19:43)
[2021-05-04] MEDS: Acetaminophen/Butalbital/CaffeineTABLET PO PRN ×2 (05:29→16:48)
[2021-05-04] MEDS: *HR* Enoxaparin 40 MG/0.4 ML SYRINGE SQ SCH (05:30)
[2021-05-04] MEDS: 0.9 % Sodium Chloride 1,000 ML IVC SCH ×2 (05:31→16:49)
[2021-05-04 05:51] LABS: Alanine Aminotransferase 24 Units/L (7-52); Albumin 4.3 g/dL (3.5-5.7); Albumin/Globulin Ratio 1.5 (1.1-2.2); Alkaline Phosphatase 109 Units/L (34-104); Aspartate Amino Transferase 27 Units/L (13-39); BUN/Creatinine Ratio 12 (6-26); Bilirubin,Total 0.3 mg/dL (0.3-1.0); Blood Urea Nitrogen 7 mg/dL (8-23); Calcium 9.4 mg/dL (8.6-10.3); Carbon Dioxide 17 mEq/L (23-29); Chloride 103 mEq/L (98-107); Creatine Kinase 320 Units/L (30-223); Globulin 2.9 g/dL (2.4-3.5); Glucose 163 mg/dL (70-105); Osmolality,Calculated 278 (280-300); Potassium 3.4 mEq/L (3.5-5.1); Sodium 133 mEq/L (136-145); Total Protein 7.2 g/dL (6.4-8.9); eGFR For African Americans > 60 (> 60); eGFR For Non-African Americans > 60 (> 60)
[2021-05-04 05:56] LABS: Hematocrit 37.6 % (35.3-44.9); Hemoglobin 12.3 g/dL (11.5-15.4); Mean Corpuscular HGB Conc 32.7 g/dL (31.6-35.5); Mean Corpuscular Hemoglobin 29.3 pg (28.0-33.3); Mean Corpuscular Volume 89.5 fL (83.0-100.0); Mean Platelet Volume 11.2 fL (9.4-12.4); Platelet Count 208 K/mcL (140-400); Red Cell Distribution Width 13.1 % (11.5-14.5); White Blood Count 3.9 K/mcL (4.3-11.1)
[2021-05-04] MEDS: Aspirin 325 MG TABLET PO SCH (07:42)
[2021-05-04] MEDS: *HR* LORazepam 1 MG TABLET PO SCH ×3 (07:43→20:42)
[2021-05-04] MEDS: Acyclovir 200 MG CAPSULE PO SCH (07:43)
[2021-05-04] MEDS: amLODIPine 5 MG TABLET PO SCH (07:43)
[2021-05-04] MEDS: Temazepam 15 MG CAPSULE PO SCH (20:41)
[2021-05-05 03:31] LABS: Hematocrit 35.9 % (35.3-44.9); Hemoglobin 11.7 g/dL (11.5-15.4); Mean Corpuscular HGB Conc 32.6 g/dL (31.6-35.5); Mean Corpuscular Hemoglobin 28.7 pg (28.0-33.3); Platelet Count 299 K/mcL (140-400); Red Blood Count 4.08 M/mcL (3.82-4.97); White Blood Count 4.3 K/mcL (4.3-11.1)
[2021-05-05 03:49] LABS: BUN/Creatinine Ratio 12 (6-26); Blood Urea Nitrogen 6 mg/dL (8-23); Calcium 10.1 mg/dL (8.6-10.3); Carbon Dioxide 24 mEq/L (23-29); Chloride 102 mEq/L (98-107); Creatine Kinase 219 Units/L (30-223); Glucose 101 mg/dL (70-105); Osmolality,Calculated 280 (280-300); Potassium 3.7 mEq/L (3.5-5.1); Sodium 136 mEq/L (136-145); eGFR For African Americans > 60 (> 60); eGFR For Non-African Americans > 60 (> 60)
[2021-05-05] MEDS: *HR* Enoxaparin 40 MG/0.4 ML SYRINGE SQ SCH (06:08)
[2021-05-05] MEDS: 0.9 % Sodium Chloride 1,000 ML IVC SCH (06:41)
[2021-05-05] MEDS: Aspirin 325 MG TABLET PO SCH (07:34)
[2021-05-05] MEDS: amLODIPine 5 MG TABLET PO SCH (07:35)
[2021-05-05] MEDS: Acyclovir 200 MG CAPSULE PO SCH (07:35)
[2021-05-05] MEDS: *HR* LORazepam 1 MG TABLET PO SCH ×3 (07:35→19:46)
[2021-05-05] MEDS: Acetaminophen/Butalbital/CaffeineTABLET PO PRN ×2 (07:35→19:47)
[2021-05-05] MEDS: Temazepam 15 MG CAPSULE PO SCH (19:46)
[2021-05-05] MEDS: Ondansetron 4 MG/2 ML VIAL IVP PRN (19:46)
[2021-05-06] MEDS: Acetaminophen/Butalbital/CaffeineTABLET PO PRN ×2 (04:13→19:41)
[2021-05-06] MEDS: *HR* Enoxaparin 40 MG/0.4 ML SYRINGE SQ SCH (04:14)
[2021-05-06] MEDS: Ondansetron 4 MG/2 ML VIAL IVP PRN ×2 (04:14→19:41)
[2021-05-06] MEDS: *HR* LORazepam 1 MG TABLET PO SCH ×3 (08:39→19:42)
[2021-05-06] MEDS: Acyclovir 200 MG CAPSULE PO SCH (08:39)
[2021-05-06] MEDS: amLODIPine 5 MG TABLET PO SCH (08:39)
[2021-05-06] MEDS: Aspirin 325 MG TABLET PO SCH (08:39)
[2021-05-06] MEDS: Temazepam 15 MG CAPSULE PO SCH (19:41)
[2021-05-07] MEDS: Acetaminophen/Butalbital/CaffeineTABLET PO PRN ×2 (00:50→14:14)
[2021-05-07] MEDS: *HR* Enoxaparin 40 MG/0.4 ML SYRINGE SQ SCH (06:04)
[2021-05-07] MEDS: Ondansetron 4 MG/2 ML VIAL IVP PRN (06:04)
[2021-05-07] MEDS: Acyclovir 200 MG CAPSULE PO SCH (09:23)
[2021-05-07] MEDS: *HR* LORazepam 1 MG TABLET PO SCH ×3 (09:23→20:25)
[2021-05-07] MEDS: Aspirin 325 MG TABLET PO SCH (09:23)
[2021-05-07] MEDS: amLODIPine 5 MG TABLET PO SCH (09:23)
[2021-05-07] MEDS: Temazepam 15 MG CAPSULE PO SCH (20:25)
[2021-05-08] MEDS: Acetaminophen/Butalbital/CaffeineTABLET PO PRN ×2 (01:37→14:47)
[2021-05-08] MEDS: *HR* Enoxaparin 40 MG/0.4 ML SYRINGE SQ SCH (06:18)
[2021-05-08] MEDS: Acyclovir 200 MG CAPSULE PO SCH (09:25)
[2021-05-08] MEDS: amLODIPine 5 MG TABLET PO SCH (09:25)
[2021-05-08] MEDS: *HR* LORazepam 1 MG TABLET PO SCH ×2 (09:27→14:37)
[2021-05-08] MEDS: Aspirin 325 MG TABLET PO SCH (09:27)
[2021-05-08 13:07] LABS: Hematocrit 37.5 % (35.3-44.9); Hemoglobin 12.1 g/dL (11.5-15.4); Mean Corpuscular HGB Conc 32.3 g/dL (31.6-35.5); Mean Corpuscular Hemoglobin 28.2 pg (28.0-33.3); Mean Corpuscular Volume 87.4 fL (83.0-100.0); Mean Platelet Volume 9.4 fL (9.4-12.4); Platelet Count 335 K/mcL (140-400); Red Blood Count 4.29 M/mcL (3.82-4.97); Red Cell Distribution Width 12.9 % (11.5-14.5); White Blood Count 5.8 K/mcL (4.3-11.1)
[2021-05-08 13:48] LABS: BUN/Creatinine Ratio 16 (6-26); Blood Urea Nitrogen 10 mg/dL (8-23); Calcium 10.2 mg/dL (8.6-10.3); Carbon Dioxide 23 mEq/L (23-29); Chloride 94 mEq/L (98-107); Glucose 99 mg/dL (70-105); Osmolality,Calculated 263 (280-300); Potassium 4.2 mEq/L (3.5-5.1); Sodium 127 mEq/L (136-145); eGFR For African Americans > 60 (> 60); eGFR For Non-African Americans > 60 (> 60)
[2021-05-08 16:20] VITALS: BP 156/97; PULSE 78; TEMP 98.5; O2SAT 99
== END 2021-05-08 17:57 | disposition home health service (06) | DRG 70 ==
LOC: EMEROOARM 20:43 → 3BNU 20:43 → SUATTDRO 04-29 00:03 → 3BNU 04-29 00:55 → SUATTDRO 04-30 14:37
PROVIDERS: ADMIT Family Medicine; ATTEND Registered Nurse